=== PATIENT | male | born 1980 | race Caucasian/White ===

== ENCOUNTER 2021-09-18 20:49 | Emergency (ER) | payer BC ==
[~2021-09-18] VITALS: Ht 182.9 cm; Wt 131.5 kg
[2021-09-18] MEDS ORDERED: VALTREX1000 MG PO (21:01)
[2021-09-18] MEDS ORDERED: NEURONTIN100 MG PO (21:02)
== END 2021-09-18 21:06 | disposition home or self-care (01) ==
LOC: ER 21:00
DX: B02.9 Zoster without complications (principal); I10 Essential (primary) hypertension; E11.9 Type 2 diabetes mellitus without complications; E78.5 Hyperlipidemia, unspecified
CPT/HCPCS: 99282

== ENCOUNTER 2024-11-28 21:31 | Emergency (ER) | payer BC ==
[~2024-11-28] VITALS: Ht 177.8 cm; Wt 127.0 kg
[~2024-11-28 21:31] MED LIST: NEURONTIN100 MG PO; VALTREX1000 MG PO
[2024-11-28 22:00] VITALS: PULSE 102; RESP 17; TEMP 98.8
[2024-11-29] MEDS ORDERED: PAXLOVID 300-11 EAC1 PO (00:32)
[2024-11-29 00:48] VITALS: BP 134/83; PULSE 101; RESP 17; TEMP 98.5; O2SAT 98
== END 2024-11-29 00:45 | disposition home or self-care (01) ==
LOC: ER 11-29 00:30
DX: R05.9 Cough, unspecified (principal); U07.1 COVID-19; I10 Essential (primary) hypertension; E11.9 Type 2 diabetes mellitus without complications; E78.5 Hyperlipidemia, unspecified; F41.9 Anxiety disorder, unspecified
CPT/HCPCS: 99283